=== PATIENT | female | born 1960 | race Caucasian/White ===

== ENCOUNTER 2017-09-29 08:51 | Day surgery (SDC) | payer MEDICAID ==
[~2017-09-29] VITALS: Ht 152.4 cm; Wt 72.6 kg
--- NOTE | ~2017-09-29 | HP ---
PATIENT: ANTONELLA VALDEZ MEDICAL RECORD: [id number] ACCOUNT: [id number] LOCATION:[facility] : 56 ADMISSION DATE: 09/29/17 HISTORY AND PHYSICAL EXAMINATION HISTORY OF PRESENT ILLNESS: She is a 57-year-old female with a painful lesion in the oral cavity for over 3 months. She is being admitted for excision of that lesion. PAST MEDICAL HISTORY: Diabetes, hypertension, asthma. PAST SURGICAL HISTORY: Includes hysterectomy, , hernia, and shoulder replacement. CURRENT MEDICATIONS: Zovirax, albuterol, Alphagan eyedrops, atorvastatin, Fioricet, Plavix, Flexeril, Benadryl, Pepcid, Lexapro, Lasix, Neurontin, Plaquenil, insulin, omeprazole, methotrexate, metformin, Protonix, trazodone, Tresiba, Imdur, ramipril, and Ativan. ALLERGIES: Really too numerous to list. Approximately 30 medications, she has a printed list that she can bring to avoid any errors there. PHYSICAL EXAMINATION GENERAL: She is developmentally normal. FACE: Normal, symmetric, no lesions. EYES: Sclerae and conjunctivae are normal. EARS: Canals and TMs are normal. NOSE: No mass, polyps or drainage. ORAL CAVITY AND OROPHARYNX: She has 3 cm wide lesion in the lower gingival buccal sulcus with granulation, is not healing and looks like probably a laceration from a denture that is not healing, but it is deep and exophytic, partially infected, needs excision and primary repair, either way to rule out carcinoma as well. IMPRESSION: Large nonhealing oral cavity lesion over 3 months. PLAN: Wide local excision of that lesion. TRANSINT:[id number] Voice Confirmation ID: [id number] DOCUMENT ID: [id number] JOHN SKELTON MD CC: [id number] DICTATION DATE: 09/26/17 0836 DISTRICT LOSS PREVENTION MANAGER: 09/26/17 1012 [facility] [address] [place] [address]
--- NOTE | ~2017-09-29 | OP ---
PATIENT NAME: ANTONELLA VALDEZ MEDICAL RECORD: [id number] :56 LOCATION:D.OPS ADMISSION DATE: SURGEON: JAYCE MEREDITH MD DATE OF OPERATION: 09/29/2017 PREOPERATIVE DIAGNOSIS: Oral cavity lesion. POSTOPERATIVE DIAGNOSIS: Oral cavity lesion. PROCEDURE: Excisional oral cavity lesion. SURGEON: Jayce Meredith MD ANESTHESIA: General LMA. COMPLICATIONS: None. SPECIMENS: Oral cavity lesion. DISPOSITION: Recovery stable. DESCRIPTION OF PROCEDURE: She was brought to the operating room and placed in supine position, sedated and intubated by anesthesia. The mouth was rinsed with Peridex solution and suctioned. She was allergic to LIDOCAINE, so she was not injected. An incision was made in the lower gingival buccal sulcus with the needle tip cautery taking a cuff of normal mucosa around the entire lesion, which was centered in the anterior gingival buccal sulcus. This was taken down deep and excised with scissors, full thickness to the mucosa excising the complete lesion intact and was sent for specimen. The wound was carefully cleaned irrigated. Spatula tip cautery on a setting of 10 was used to stop some minimal bleeding. The wound was closed with interrupted 3-0 and 4-0 Vicryl to tightly close the incision. She was awakened, extubated, and transported to recovery in good condition. No complications. TRANSINT:[id number] Voice Confirmation ID: [id number] DOCUMENT ID: [id number] JAYCE MEREDITH MD CC: [id number] DICTATION DATE: 09/29/17 1441 FRUIT CANNER: 09/29/17 150[address] [place] [address]
[~2017-09-29 08:51] MED LIST: ALTACE10 MG PO; ATIVAN0.5 MG PO; DEPAKOTE ER500 MG PO; DILANTIN100 MG PO; HUMALOG 30100 UNITS/ SC; K-DUR20 MEQ PO; LANTUS SOL100 UNIT/1 SQ; LASIX40 MG PO; METOPROLOL TART50 MG PO; NORVASC10 MG PO; PRILOSEC20 MG PO; REGLAN10 MG PO; TEGRETOL200 MG PO
[2017-09-29 11:08] LABS: HEMATOCRIT 46.2 % (36.0-48.0); HEMOGLOBIN 16.1 g/dL (12-16); MCH 32.7 pg (26.0-34.0); MCHC 34.8 g/dL (31.0-37.0); MCV 93.7 fL (80.0-100.0); RBC 4.93 10x6/uL (4.00-5.40); RDW 13.3 % (11.5-14.5); WBC 6.4 10x3/uL (4.8-10.8)
[2017-09-29] MEDS ORDERED: ZOVIRAX400 MG PO (11:35)
[2017-09-29 11:36] LABS: CALC OSMOLALITY 274 mosm/kg (275-300); CALCIUM 8.9 mg/dL (8.5-10.1); CARBON DIOXIDE 23.5 mmol/L (21.0-32.0); CHLORIDE - SERUM 98 mmol/L (98-107); CREATININE - SERUM 0.7 mg/dL (0.6-1.3); POTASSIUM - SERUM 3.7 mmol/L (3.5-5.1); SODIUM 133 mmol/L (136-145); UREA NITROGEN 13 mg/dL (7-18); eGFR NON AFRICAN AMERICAN > 90 mL/min (90-120)
[2017-09-29] MEDS ORDERED: PROAIR HFA8.5 GM (11:36)
[2017-09-29] MEDS ORDERED: TRESIBA FL100 UNIT/1 SC (11:36)
[2017-09-29] MEDS ORDERED: ALPHAGAN P15 ML EACH EYE (11:38)
[2017-09-29] MEDS ORDERED: LIPITOR10 MG PO (11:38)
[2017-09-29] MEDS ORDERED: AZOPT 1% OPHT D10 ML EACH EYE (11:39)
[2017-09-29] MEDS ORDERED: BUTALB-APAP-CA1 EACH PO (11:39)
[2017-09-29] MEDS ORDERED: VITAMIN D2000 UNIT PO (11:40)
[2017-09-29] MEDS ORDERED: TEGRETOL XR200 M1 PO (11:40)
[2017-09-29] MEDS ORDERED: CYCLOBENZAPRINE10 MG PO (11:41)
[2017-09-29] MEDS ORDERED: PLAVIX75 MG PO (11:41)
[2017-09-29] MEDS ORDERED: LEXAPRO20 MG PO (11:42)
[2017-09-29] MEDS ORDERED: EPIPEN0.3 MG/0.3 IM (11:42)
[2017-09-29] MEDS ORDERED: BENADRYL50 MG PO (11:42)
[2017-09-29] MEDS ORDERED: PEPCID20 MG PO (11:43)
[2017-09-29] MEDS ORDERED: FOLIC ACID1 MG PO (11:44)
[2017-09-29] MEDS ORDERED: FUROSEMIDE40 MG PO (11:44)
[2017-09-29] MEDS ORDERED: FLUTICASONE PRO16 GM NASAL (11:44)
[2017-09-29] MEDS ORDERED: NEURONTIN800 MG PO (11:45)
[2017-09-29] MEDS ORDERED: PLAQUENIL200 MG PO (11:45)
[2017-09-29] MEDS ORDERED: ISOSORBIDE MONO60 M1 PO (11:47)
[2017-09-29] MEDS ORDERED: TREXALL15 MG PO (11:47)
[2017-09-29] MEDS ORDERED: GLUCOPHAGE1000 MG PO (11:47)
[2017-09-29] MEDS ORDERED: NITROSTAT0.4 MG SL (11:48)
[2017-09-29 11:49] LABS: GLUCOSE 265 mg/dL (74-106)
[2017-09-29] MEDS ORDERED: PROTONIX40 MG PO (11:49)
[2017-09-29] MEDS ORDERED: DESERYL100 MG PO (11:51)
[2017-09-29] MEDS ORDERED: TOPROL XL50 MG PO (11:52)
[2017-09-29 12:02] VITALS: BP 114/66; Ht 152.4 cm; Wt 72.6 kg
== END 2017-09-29 16:05 | disposition home or self-care (01) ==
LOC: D.OPS 08:51 → D.PAN 10:00 → D.OPS 10:00
PROVIDERS: Anesthesiology
DX: K13.70 Unspecified lesions of oral mucosa (principal); E11.9 Type 2 diabetes mellitus without complications; I10 Essential (primary) hypertension; J45.909 Unspecified asthma, uncomplicated; F17.200 Nicotine dependence, unspecified, uncomplicated; I25.10 Atherosclerotic heart disease of native coronary artery without angina pectoris; K21.9 Gastro-esophageal reflux disease without esophagitis; G47.30 Sleep apnea, unspecified; J44.9 Chronic obstructive pulmonary disease, unspecified; Z01.812 Encounter for preprocedural laboratory examination

== ENCOUNTER 2018-07-20 08:39 | Day surgery (SDC) | payer MEDICAID ==
[~2018-07-20] VITALS: Ht 152.4 cm; Wt 69.9 kg
--- NOTE | ~2018-07-20 | OP ---
PATIENT NAME: ANTONELLA VALDEZ MEDICAL RECORD: [id number] :56 [facility] DATE: SURGEON: JAYCE MEREDITH MD DATE OF OPERATION: 07/20/2018 PREOPERATIVE DIAGNOSES: Chronic maxillary sinusitis, nasal obstruction, and turbinate hypertrophy. POSTOPERATIVE DIAGNOSES: Chronic maxillary sinusitis, nasal obstruction, and turbinate hypertrophy. PROCEDURE: Bilateral middle meatal antrostomy and inferior turbinate reduction. SURGEON: Jayce Meredith MD ANESTHESIA: General orotracheal. BLOOD LOSS: 2 cc. SPECIMENS: Biopsies from the middle meatus bilaterally and cultures from the maxillary sinus bilaterally. PACKING: None. COMPLICATIONS: None. DISPOSITION: Recovery stable. DESCRIPTION OF PROCEDURE: She is brought to the operating room and placed in supine position, sedated and intubated by anesthesia. The table was turned 90 degrees. Head drape was applied and she was positioned for nasal surgery. She listed very very many allergies, so we just only thing I used with Afrin topically. I placed the Afrin pledget in both middle meatuses and under the inferior turbinate bilaterally with a few minutes for decongestion, removed those, medialized both inferior turbinates, took down the inferior redundant portion and used suction cautery to stop any bleeding and both outfractured with a Chandler elevator. Then, first on the right side medialized the middle turbinate little bit, took down the uncinate with a backbiter, entered the maxillary sinus and with a large curved olive tip suction and I used a Luki trap to evacuate the contents there and sent that for aerobic and anaerobic cultures. Basically just got a thick glob of mucus, did not particular looked purulent, just thick mucus. Irrigated the sinus out repeatedly, enlarged the ostia about the size of dime and irrigated that sinus repeatedly, there was really not much bleeding. I did the same thing on the left side, exactly same kind of findings, thick white glob of mucus suctioned out with Luki trap and then opened up that ostia. I then placed Afrin pledgets in both middle meatus, waited for a few minutes, I then irrigated each sinus repeatedly with saline. I examined the sinus with a 30-degree scope and mucosa looked slightly edematous, slightly erythematous, but there was no masses or polyps or cysts inside the sinuses themselves, suctioned out the nasopharynx. The rest of the mucosa, the inferior middle turbinate, nasal vault, and nasopharynx all look normal. IMPRESSION: Procedure was complete. All the packing was removed. There was no significant bleeding. She was awakened, extubated, and transported to recovery in good condition. No complications. Counts were correct. OPERATIVE REPORT [id number] ANTONELLA VALDEZ TRANSINT:[id number] Voice Confirmation ID: [id number] DOCUMENT ID: [id number] JAYCE MEREDITH MD CC: [id number] DICTATION DATE: 07/20/18 1528 MANGLE PRESS CATCHER: 07/20/18 170 [facility] 07/20/18 [facility] [address] [id number]
--- NOTE | ~2018-07-20 | HP ---
PATIENT: ANTONELLA MOON MEDICAL RECORD: [id number] ACCOUNT: [id number] LOCATION:[facility] : 56 ADMISSION DATE: 07/20/18 PCP: HISTORY AND PHYSICAL EXAMINATION PREOPERATIVE HISTORY AND PHYSICAL HISTORY OF PRESENT ILLNESS: Ms. Moon is a 58-year-old female. She has been having problems with right-sided nasal obstruction and pressure. She has been found to have expansile opacification of the right maxillary sinus. She is being admitted for right middle meatal antrostomy and bilateral inferior turbinate reduction. PAST MEDICAL HISTORY: Includes diabetes, hypertension, coronary artery disease, reactive airway disease, seizures, CVA. PAST SURGICAL HISTORY: Hysterectomy, C-sections, hernia repair, shoulder replacement. CURRENT MEDICATIONS: Include Plavix has been held, cyclobenzaprine, Lexapro, Pepcid, Flonase, Lasix, Neurontin, insulin, Plaquenil, atorvastatin, cholecalciferol, ramipril, pantoprazole, metoprolol, Carafate. ALLERGIES: INCLUDE, BUT ARE NOT LIMITED TO ASPIRIN, QUINOLONES, DOXYCYCLINE, CODEINE, ERYTHROMYCIN, PHENOBARBITAL, DILANTIN, ZOFRAN, LATEX. SHE LIST ALLERGY TO ALMOST ALL VACCINES. IBUPROFEN, DILAUDID, KEFLEX. THERE ARE MANY OTHERS. SHE WILL BRING A LIST THAT CAN GO ON THE CHART. PHYSICAL EXAMINATION: GENERAL: Normal. FACE: Normal and symmetric. EYES: Sclerae and conjunctivae are normal. NOSE: The right lateral nasal wall is obviously expanding and obstructing the right side of the nose. She has large inferior turbinates. ORAL CAVITY AND OROPHARYNX: No lesions. NECK: No masses, no adenopathy. CHEST: Clear. IMAGING DATA: CT shows expansile opacification of right maxillary sinus. IMPRESSION: Right maxillary sinusitis or possibly mass lesion is opacified and expanding nasal obstruction from that. She is being admitted for right middle meatal antrostomy, possible Garcia-Hola, and bilateral inferior turbinate reduction. TRANSINT:[id number] Voice Confirmation ID: [id number] DOCUMENT ID: [id number] HISTORY AND PHYSICAL [id number] JOSÉ MIGUELANTONELLAJOHN SIMON MD at 0536 CC: [id number] DICTATION DATE: 07/17/18 1418 FACTORY SUPERINTENDENT: 07/17/18 1505 PRE [facility] [address] [place] [id number]
[~2018-07-20 08:39] MED LIST changes: +ALPHAGAN P15 ML EACH EYE; +APTIOM400 MG PO; +AZOPT 1% OPHT D10 ML EACH EYE; +BENADRYL50 MG PO; +BUTALB-APAP-CA1 EACH PO; +CYCLOBENZAPRINE10 MG PO; +DESERYL100 MG PO; +EPIPEN0.3 MG/0.3 IM; +FLUTICASONE PRO16 GM NASAL; +FOLIC ACID1 MG PO; +FUROSEMIDE40 MG PO; +GLUCOPHAGE1000 MG PO; +ISOSORBIDE MONO60 M1 PO; +LEXAPRO20 MG PO; +LIPITOR10 MG PO; +NEURONTIN800 MG PO; +NITROSTAT0.4 MG SL; +PEPCID20 MG PO; +PLAQUENIL200 MG PO; +PLAVIX75 MG PO; +PROAIR HFA8.5 GM; +PROTONIX40 MG PO; +TEGRETOL XR200 M1 PO; +TOPROL XL50 MG PO; +TRESIBA FL100 UNIT/1 SC; +TREXALL15 MG PO; +VITAMIN D2000 UNIT PO; +ZOVIRAX400 MG PO
[2018-07-20 09:00] LABS: BASOPHILS 0.3 % (0-2); EOSINOPHILS 1.5 % (0-7); HEMATOCRIT 40.2 % (36.0-48.0); HEMOGLOBIN 13.3 g/dL (12-16); IMMATURE GRANULOCYTES 0.1 % (0-5); LYMPHOCYTES 28.9 % (15-50); MCHC 33.1 g/dL (31.0-37.0); MCV 90.7 fL (80.0-100.0); MEAN PLATELET VOLUME 9.8 fL (7.4-10.4); MONOCYTES 5.6 % (2-11); NEUTROPHILS 63.6 % (40-80); PLATELET COUNT 283 10x3/uL (130-400); RBC 4.43 10x6/uL (4.00-5.40); RDW 13.9 % (11.5-14.5); WBC 9.7 10x3/uL (4.8-10.8)
[2018-07-20 09:12] LABS: CALC OSMOLALITY 282 mosm/kg (275-300); CALCIUM 9.3 mg/dL (8.5-10.1); CARBON DIOXIDE 28.3 mmol/L (21.0-32.0); CHLORIDE - SERUM 98 mmol/L (98-107); CREATININE - SERUM 0.6 mg/dL (0.6-1.3); POTASSIUM - SERUM 4.2 mmol/L (3.5-5.1); SODIUM 135 mmol/L (136-145); UREA NITROGEN 9 mg/dL (7-18); eGFR NON AFRICAN AMERICAN > 90 mL/min (90-120)
[2018-07-20 09:14] LABS: GLUCOSE 344 mg/dL (74-106)
[2018-07-20] MEDS ORDERED: CARAFATE1 G PO (12:03)
[2018-07-20 12:15] VITALS: BP 110/62; Ht 152.4 cm; Wt 69.9 kg
== END 2018-07-20 16:53 | disposition home or self-care (01) ==
LOC: D.OPS 08:39
PROVIDERS: Anesthesiology
DX: J32.0 Chronic maxillary sinusitis (principal); J34.3 Hypertrophy of nasal turbinates; J34.89 Other specified disorders of nose and nasal sinuses; Z01.812 Encounter for preprocedural laboratory examination